=== PATIENT | female | born 1945 | race Caucasian/White ===

== ENCOUNTER 2017-05-25 19:39 | Emergency (ER) | payer MEDICARE, OTHER, SELFPAY ==
[2017-05-25 19:39] VITALS: BP 155/65; PULSE 108; RESP 18; TEMP 38.7; O2SAT 97; BMI 35.2
[2017-05-25 20:17] LABS: Bacteria 0 SEEN /hpf (None Seen); Mucous, Urine 0 SEEN /hpf (<or=2+); Red Blood Cells-Urine 0 SEEN /hpf (0-5); White Blood Cells 0 SEEN /hpf (0-5)
[2017-05-25 20:28] LABS: Color, Urine Yellow (Yellow); Glucose, Dipstick Normal (Normal); Ketone-Dipstick Negative (Negative); Leukocyte Esterase-Dipstick Negative /ul (Negative); Nitrite-Dipstick Negative (Negative); Occult Blood-Urine Negative /ul (Negative); Protein-Dipstick Negative (Negative); Urine Bilirubin Dipstick Negative (Negative); Urine Clarity Clear (Clear); Urine Urobilinogen Normal (Normal)
[2017-05-25 20:34] LABS: Absolute Lymphocyte Count 1.11 X10^3/ul (0.83-4.51); Absolute Neutrophil Count 3.5 X10^3/uL (2.0-7.7); Basophil# 0.01 X10^3/uL; Basophil% 0.2 % (0-1); Eosinophil# 0.03 X10^3/uL; Eosinophils% 0.6 % (0-5); Hematocrit 41.1 % (37-47); Hemoglobin 13.3 g/dl (12.0-15.0); Lymphocyte # 1.11 X10^3/ul (4.0); Lymphocyte % 21.7 % (19-41); Mean Corp Hgb Conc 32.4 g/gl (32-36); Mean Corpuscular Hgb 27.1 pg (27.0-32.0); Mean Corpuscular Volume 83.7 fL (81-99); Mean Platelet Vol. 10.5 fl (6.2-12.0); Monocyte# 0.43 X10^3/uL; Monocyte% 8.4 % (0-10); Neutrophil # 3.54 X10^3/uL (2.7-7.7); Neutrophil % 69.1 % (47-70); POSITIVE COUNT NO; POSITIVE DIFFERENTIAL NO; POSITIVE MORPHOLOGY NO; Platelet Count 198 K/mm3 (150-450); RBC Distribution Width CV 14.9 % (11.6-14.6); RBC Distribution Width SD 45.5 fl (35.1-43.9); Red Blood Count 4.91 M/mm3 (4.2-5.4); White Blood Count 5.1 K/mm3 (4.4-11.0)
--- NOTE | 2017-05-25 20:40 | RAD_ITS ---
STUDY: X-RAY CHEST REASON FOR EXAM: Female, 72 years old. Shortness of breath. Cough and congestion. TECHNIQUE: PA and lateral views of the chest. COMPARISON: None. FINDINGS: Postoperative changes in the left breast and axillary region. There are monitoring devices. There are interstitial fibrotic changes of the lungs. There is no demonstrated pleural abnormality. Normal size heart. Normal mediastinum and marlen. Normal visualized pulmonary arteries. Normal visualized aortic arch and descending thoracic aorta. Normal visualized thoracic spine. Normal visualized ribs, clavicles, and shoulders. There is no demonstrated abnormality of the visualized soft tissue structures of the upper abdomen. RAD/Chest PA and Lateral IMPRESSION: Degenerative changes, as described above. No demonstrated acute cardiopulmonary process. Electronically Signed: Leonardo Suh MD at 21:10 EDT , Service support ,
[2017-05-25 20:41] LABS: Squamous Epithelial Cells - UA 0-5 SEEN /hpf (5-10)
[2017-05-25] MEDS: Acetaminophen 500 MG Tablet 1000 MG PO (20:51)
[2017-05-25] MEDS: Ondansetron 4 MG/2 ML Vial IV (20:52)
[2017-05-25] MEDS: 0.9% Normal Saline 1,000 ML 150 ML IV (20:52)
--- NOTE | 2017-05-25 21:12 | NURSING ---
PT'S MONITOR SHOWED 88% WITH GOOD WAVEFORM. [place] ENTERED PT ROOM, PT A0X3, ABLE TO TAKE DEEP BREATHS. SPO2 UP TO 96% ON RA. DR PHAN AND MORE [place] MADE AWARE.
[2017-05-25 21:28] LABS: Anion Gap 10 (5-15); BUN 10 mg/dL (7-18); BUN/Creat Ratio 11.6 RATIO (10-20); Calcium,Total 8.4 mg/dL (8.5-10.1); Chloride 105 mmol/L (98-107); Creatinine, Serum 0.86 mg/dL (0.55-1.02); EST Glomerular Filtration Rate 69 mL/min (>60); Est Glom Filt Rate - Afr Amer 84 mL/min (>60); Estimated Creatinine Clearance 45.93 ml/min; Glucose 94 mg/dL (74-106); Potassium 4.1 mmol/L (3.5-5.1); Sodium Level 139 mmol/L (136-145)
[2017-05-25 22:02] VITALS: BP 113/62; PULSE 84; RESP 20; TEMP 37.8; O2SAT 95
--- NOTE | 2017-05-25 22:14 | ED.VISSUMM ---
- ER Visit Summary Date of Service: 05/25/17 Chief Complaint: Fever History of Present Illness: The patient is a 72 F with shortness of breath and cough for the past 1 week. She states her cough is nonproductive. T-max has been 102. Patient was seen by her PCP on the fifth and started on amoxicillin. Her symptoms worsened and she was seen by her PCP again yesterday. She is given doxycycline and albuterol. Patient states in spite of that she does not feel improved today. She has just been wanting to lie around the house. She has had no nausea, vomiting, or diarrhea. She has no urinary symptoms. Last dose of anything for fever was early this morning. Physical Examination: Vital signs include a blood pressure 155/65, temperature 101.6, heart rate 108, respiratory rate 18, pulse ox 97% on room air. Patient sitting upright in bed. She is alert and talkative. She is nontoxic appearing. Head and neck examination reveals moist mucous membranes. Heart is slightly tachycardic and regular. Lung sounds with good air movement throughout, slightly diminished at the bases only. No wheezes or rhonchi are noted. Abdomen is soft nontender. Lower extremity examination was no calf tenderness or edema. I see no sign of cellulitis or acute skin infection. Test Results: CBC and chemistry studies are normal. Urinalysis is normal. Influenza swab is negative. Two-view chest x-ray shows no acute process. Blood cultures were obtained. Emergency Department Course and Treatment: Patient was given Tylenol. Repeat temperature is 100.1 by 98.9. Patient ambulated in the emergency room with an ambulate in pulse ox of 96%. I discussed with her that I believe her symptoms are likely viral in nature and that is why they are not improving with antibiotics. We discussed the possibility of doing a viral respiratory panel this would not significantly change our treatment course. She declines this test. She will continue to use Tylenol for fever control. She is taking Delsym for cough. Patient is to return for worsening symptoms or if any acute concerns arise. Treatment Plan: [] Disposition: Discharge Impression: 1. Fever 2. Viral syndrome This note was generated with [employer] software. It may contain incorrect words, spelling, and punctuation that were not noted in review of the chart prior to signing ED Disposition - Plan for ED Patient: Disposition: Home or Assisted Living Chief Complaint: Fever Instructions: ED Upper Resp Infec No Abx Tx Referrals: Lee Penaloza MD [Primary Care Provider] - 1 Week
[2017-05-25 22:35] VITALS: BP 118/56; PULSE 77; RESP 13; TEMP 37.2; O2SAT 95
== END 2017-05-25 22:36 | disposition home or self-care (01) ==
PROVIDERS: Emergency Provider Emergency Medicine; Family Provider Family Medicine; PCP Family Medicine
DX: R50.9 Fever, unspecified (principal); B34.9 Viral infection, unspecified; Z79.82 Long term (current) use of aspirin; Z79.899 Other long term (current) drug therapy
CPT/HCPCS: 71046; 80048; 81001; 85025; 87040; 87804; 96360; 96361; 99282; J7030; A4216; J2405

== ENCOUNTER → 2018-06-07 09:09 | Outpatient (CLI) | payer MEDICARE, OTHER, SELFPAY ==
[2018-06-07 10:45] LABS: Creatinine, Serum 0.93 mg/dL (0.55-1.02); EST Glomerular Filtration Rate 63 mL/min (>60); Est Glom Filt Rate - Afr Amer 76 mL/min (>60)
== END ==
PROVIDERS: Family Provider Family Medicine; PCP Family Medicine; Referring Provider Nurse Practitioner; Visit Provider Nurse Practitioner
DX: M48.061 Spinal stenosis, lumbar region without neurogenic claudication (principal)
CPT/HCPCS: 36415; 82565

== ENCOUNTER → 2018-06-13 16:10 | Outpatient (CLI) | payer MEDICARE, OTHER, SELFPAY ==
--- NOTE | 2018-06-13 16:26 | MRI_ITS ---
STUDY: MRI LUMBAR SPINE WITH AND WITHOUT CONTRAST REASON FOR EXAM: Female, 73 years old. Low back pain radiating to right hip TECHNIQUE: Standardized fat and water weighted pulse sequences were obtained in the sagittal and axial planes. 17 IV Dotarem was administered for the contrast portion of the examination. COMPARISON: None FINDINGS: T12-L1: Normal endplates. Normal disc height, hydration and morphology. Normal bilateral facet joints. Normal central canal and bilateral lateral recesses. Normal bilateral intervertebral neural foramina. Normal lumbar lordosis. Reverse S scoliosis. Normal conus medullaris that terminates at the T12-L1 level. Bilateral posterior pedicle fusions at the L4 and L5 levels. L1-2: Bilateral laminectomies. Disc space narrowing and desiccation with discogenic endplate changes and anterior osteophytes. Bulging annulus and bilateral facet hypertrophy with moderate to severe left lateral recess stenosis and moderate to severe left and mild right foraminal stenoses. L2-3: Disc space narrowing and desiccation with discogenic endplate changes and anterior osteophytes. Bilateral laminectomies. Residual disc osteophyte complex and right facet hypertrophy with moderate bilateral foraminal stenoses. L3-4: Bilateral laminectomies. Residual bulging annulus and bilateral facet hypertrophy with moderate central canal stenosis and severe right and mild left foraminal stenoses. L4-5: Disc space fusion. Bilateral laminectomies. No residual compressive sequelae. L5-S1: Normal endplates. Normal disc height, hydration and morphology. Normal bilateral facet joints. Normal central canal and bilateral lateral recesses. Normal bilateral intervertebral neural foramina. Normal visualized sacral ala. Normal visualized paraspinous soft tissue structures. MRI/Spine Lumbar W/WO Contrast IMPRESSION: Multilevel degenerative disease and postoperative change as described. Moderate to severe left lateral recess and foraminal stenoses at the L1-2 level. Severe right foraminal stenosis at the L3-4 level. Electronically Signed: Lee Razo MD at 18:11 EDT Tel , Service support ,
== END ==
PROVIDERS: Family Provider Family Medicine; PCP Family Medicine; Referring Provider Nurse Practitioner; Visit Provider Nurse Practitioner
DX: M51.36 Other intervertebral disc degeneration, lumbar region (principal)
CPT/HCPCS: 72158; A9575